=== PATIENT | female | born 1990 | race Caucasian/White ===

== ENCOUNTER 2022-04-21 00:09 | Emergency (ER) | payer BC ==
[2022-04-21 00:25] VITALS: BP 130/89; PULSE 105
[2022-04-21] MEDS ORDERED: methylPREDNISolone Sodium Succinate 125 MG/2 ML SDV IVPUSH ONE (01:04)
[2022-04-21] MEDS ORDERED: HYDROmorphone 0.5 MG/0.5 ML Syringe IVPUSH ONE (01:04)
[2022-04-21] MEDS ORDERED: Sodium Chloride 0.9% 10 ML Syringe FLUSH PRN (01:04)
[2022-04-21] MEDS ORDERED: Ondansetron 4 MG/2 ML SDV IVPUSH ONE (01:07)
[2022-04-21] MEDS ORDERED: Cyclobenzaprine 10 MG Tab PO ONE (01:51)
== END 2022-04-21 02:15 | disposition home or self-care (01) ==
LOC: JD.ED 00:09
DX: M54.12 Radiculopathy, cervical region (principal); Z88.5 Allergy status to narcotic agent; Z86.16 Personal history of COVID-19
CPT/HCPCS: 96374; 96375; 99283; A9270; J1170; J2405; J2930; J3490